=== PATIENT | female | born 1990 | race Hispanic/Latino ===

== ENCOUNTER 2022-03-02 11:04 | Emergency (ER) | payer OTHER ==
[~2022-03-02] VITALS: Ht 144.8 cm; Wt 60.3 kg
[2022-03-02] MEDS ORDERED: HYDROCODON-ACE1 EA11 PO (12:33)
[2022-03-02] MEDS ORDERED: CLEOCIN40 GM TOP (12:33)
[2022-03-02] MEDS ORDERED: BACTRIM DS TAB1 EACH PO (12:33)
== END 2022-03-02 12:51 | disposition home or self-care (01) ==
LOC: ER 11:08
DX: L02.412 Cutaneous abscess of left axilla (principal); Z88.8 Allergy status to other drugs, medicaments and biological substances
CPT/HCPCS: 99283